=== PATIENT | female | born 1980 | race Caucasian/White ===

== ENCOUNTER 2024-04-25 15:44 | Emergency (ER) | payer OTHER, MEDICAID ==
[~2024-04-25] VITALS: Ht 167.6 cm; Wt 112.7 kg
[2024-04-25 16:29] VITALS: PULSE 102; RESP 20; O2SAT 98
[2024-04-25] MEDS ORDERED: KETOROLAC TROMETH 30 MG/ML 1ML VIAL IV ONE (16:30)
[2024-04-25] MEDS: ONDANSETRON HCL 4 MG/2 ML VIAL IV ONE ×2 (18:04→20:11)
[2024-04-25] MEDS: MORPHINE SULFATE INJ 2 MG/ml SYRG IV ONE (18:05)
[2024-04-25 19:40] VITALS: PULSE 91; RESP 19; O2SAT 96
[2024-04-25] MEDS: MORPHINE SULFATE 4 MG/ML SYR/VIAL IV ONE (20:12)
[2024-04-25 20:42] VITALS: BP 134/81; PULSE 98; RESP 18; TEMP 98.7; O2SAT 98
== END 2024-04-25 21:19 | disposition home or self-care (01) ==
LOC: ER 15:44 → EDBD 15:44 → ER 21:19
DX: T81.89XA Other complications of procedures, not elsewhere classified, initial encounter (principal); N64.4 Mastodynia; E11.9 Type 2 diabetes mellitus without complications; E78.5 Hyperlipidemia, unspecified; I10 Essential (primary) hypertension; Z86.73 Personal history of transient ischemic attack (TIA), and cerebral infarction without residual deficits; Z88.6 Allergy status to analgesic agent
CPT/HCPCS: 96374; 96375; 96376; 99285; J2270; J2405